=== PATIENT | female | born 1950 | race Caucasian/White ===

== ENCOUNTER 2017-06-25 08:24 | Emergency (ER) | END 2017-06-25 12:55 | disposition home or self-care (01) ==

== ENCOUNTER → 2018-08-14 | Outpatient (CLI) | payer OTHER ==
[~2018-08-14] MED LIST: ACET325 PO; ASPI325EC PO; ASPI81CH PO; BUPR150ER PO; BUSP5 PO; ERGO50000 PO; FLUSAL2505 INH; FURO40 PO; METF500C PO; METO25; Norco 5-325 Ta1 EACH PO; OXYACE5T PO; POTCHL20ER PO; PRAV20 PO; Zofran4 MG PO
[2018-08-14 12:06] LABS: BASOPHILS ABSOLUTE AUTO 0.08 K/mm3 (0.00-0.23); BASOPHILS PERCENT AUTO 1 % (0-2); EOSINOPHILS ABSOLUTE AUTO 0.41 K/mm3 (0.00-0.68); EOSINOPHILS PERCENT AUTO 5 % (0-6); Hematocrit 47.7 % (33.0-51.0); Hemoglobin 14.9 g/dL (11.5-16.0); IMMATURE GRAN ABSOLUTE AUTO 0.02 K/mm3 (0.00-0.10); IMMATURE GRAN PERCENT AUTO 0 % (0-1); LYMPHOCYTES ABSOLUTE AUTO 1.42 K/mm3 (0.84-5.20); LYMPHOCYTES PERCENT AUTO 16 % (21-46); MONOCYTES ABSOLUTE AUTO 0.53 K/mm3 (0.16-1.47); MONOCYTES PERCENT AUTO 6 % (4-13); Mean Corpuscular HGB 28.7 pg (26.0-34.0); Mean Corpuscular HGB Conc 31.2 g/dL (31.5-36.5); Mean Corpuscular Volume 92 fL (80-100); Mean Platelet Volume 10.9 fL (9.1-12.4); NEUTROPHILS ABSOLUTE AUTO 6.64 K/mm3 (1.96-9.15); NEUTROPHILS PERCENT AUTO 73 % (41-73); Platelet Count 253 K/mm3 (150-400); RDW Coefficient Variation 14.7 % (11.7-14.2); RDW Standard Deviation 50.1 fL (35.1-46.3); Red Blood Cell Count 5.19 M/mm3 (3.80-5.20)
[2018-08-14 12:20] LABS: Alanine Aminotransfer (ALT/SGP 17 U/L (12-78); Albumin, Blood 3.5 g/dL (3.4-5.0); Albumin/Globulin Ratio 0.8 (0.8-1.8); Alk Phos 133 U/L (50-136); Anion Gap 5 mmol/L (6-16); Aspartate Aminotrans (AST/SGOT 13 U/L (12-37); Bilirubin, Total 0.3 mg/dL (0.1-1.0); Blood Urea Nitrogen 25 mg/dL (8-24); Bun/Creatinine Ratio 23.6 (12.0-20.0); CHOL/HDL RATIO 3.5; CO2, Blood 28 mmol/L (21-32); Calcium, Blood 9.1 mg/dL (8.5-10.1); Chloride, Blood 107 mmol/L (98-108); Cholesterol 143 mg/dL (50-200); Creatinine, Blood 1.06 mg/dL (0.40-1.00); Globulin, Blood 4.3 g/dL (2.2-4.0); Glomerular Filtration Rate 55 (60-); Glucose, Blood 95 mg/dL (70-99); HDL Cholesterol 41 mg/dL (>39); LDL/HDL RATIO 2.1; Low Density Lipoprotein Chol 84 mg/dL (0-110); Potassium, Blood 4.1 mmol/L (3.5-5.5); Sodium, Blood 140 mmol/L (136-145); Total Protein, Blood 7.8 g/dL (6.4-8.2); Triglycerides 88 mg/dL (30-160); Very Low Density Lipoprot Chol 17 mg/dL (6-32)
[2018-08-14 12:40] LABS: Creatinine, Urine Random 10.8 mg/dL (27.00-270.00)
[2018-08-14 12:43] LABS: Microalb/Creat Ratio UR, Rand 164.815 mg/g (0.000-30.000); Microalbumin, Random Urine 17.8 mg/L (0.000-20.000)
== END ==
LOC: LAB 11:37 → LAB SHORT 11:37 → EDSTATUS 08-09 09:25 → LAB FUT 08-09 09:25
PROVIDERS: Family Medicine
DX: E11.9 Type 2 diabetes mellitus without complications (principal)
CPT/HCPCS: 80053; 80061; 82043; 82570; 83036; 85025

== ENCOUNTER 2018-10-09 08:12 | Day surgery (SDC) | payer OTHER ==
[~2018-10-09] VITALS: Ht 157.5 cm; Wt 116.9 kg
[~2018-10-09 08:12] MED LIST changes: +VITAMIN D5000 UNIT PO
--- NOTE | 2018-10-09 08:55 | NUR ---
Ambulatory in Day Surgery Patient states colon prep results clear. History, Chart, Medications and Allergies reviewed before start of procedure. Patient confirms NPO status and agrees with scheduled surgery. Patient States Post-Procedure ride home has been arranged.
--- NOTE | 2018-10-09 09:01 | NUR ---
10/09/18 0901 Carlyn Pruitt History, Chart, Medications and Allergies reviewed before start of procedure. MODERATE SEDATION DUE TO INCREASED BMI MONITOR INTACT WITH CONTINUOUS PULSE OXIMETRY AND INTERMITTENT BP. 3-LEAD EKG REVIEWED WITH PHYSICIAN PRIOR TO START OF PROCEDURE.O2 VIA N/C INTACT THROUGHOUT SEDATION/PROCEDURE.
--- NOTE | 2018-10-09 10:05 | NUR ---
Patient up to Ambulate independently. Gait steady. Discharge instructions reviewed with patient. Patient verbalizes understanding. Copy given to patient to take home. Patient States Post-Procedure ride home has been arranged. Discharged via wheelchair to private car for ride home.
== END 2018-10-09 22:54 | disposition home or self-care (01) ==
LOC: ORSCMMR 08:12 → ORD 09:00 → ORSCMMR 09:00
PROVIDERS: Internal Medicine Gastroenterology
PROC: 0DBL8ZX Excision of Transverse Colon, Via Natural or Artificial Opening Endoscopic, Diagnostic (ICD-10-PCS; principal; 2018-10-09 09:00)
PROC: 0DBK8ZX Excision of Ascending Colon, Via Natural or Artificial Opening Endoscopic, Diagnostic (ICD-10-PCS; principal; 2018-10-09 09:00)
PROC: 0DBM8ZX Excision of Descending Colon, Via Natural or Artificial Opening Endoscopic, Diagnostic (ICD-10-PCS; principal; 2018-10-09 09:00)
PROC: 0DBN8ZX Excision of Sigmoid Colon, Via Natural or Artificial Opening Endoscopic, Diagnostic (ICD-10-PCS; principal; 2018-10-09 09:00)
DX: Z12.11 Encounter for screening for malignant neoplasm of colon (principal); Z86.010 Personal history of colon polyps; D12.5 Benign neoplasm of sigmoid colon; D12.4 Benign neoplasm of descending colon; D12.2 Benign neoplasm of ascending colon; D12.3 Benign neoplasm of transverse colon; E11.9 Type 2 diabetes mellitus without complications; J44.9 Chronic obstructive pulmonary disease, unspecified; I25.10 Atherosclerotic heart disease of native coronary artery without angina pectoris; F17.210 Nicotine dependence, cigarettes, uncomplicated; Z79.899 Other long term (current) drug therapy; Z79.82 Long term (current) use of aspirin; E66.01 Morbid (severe) obesity due to excess calories; Z68.42 Body mass index [BMI] 45.0-49.9, adult
CPT/HCPCS: 82947; 88305; J2250; J3010; J7120

== ENCOUNTER → 2021-01-27 | Outpatient (CLI) | payer OTHER | LOC: LAB 12:11 → LAB SHORT 12:11 | DX: N95.0 Postmenopausal bleeding (principal); N85.01 Benign endometrial hyperplasia; D26.0 Other benign neoplasm of cervix uteri | CPT/HCPCS: 88305 ==

== ENCOUNTER 2021-07-30 10:39 | Emergency (ER) | payer OTHER ==
[~2021-07-30] VITALS: Ht 162.6 cm; Wt 110.7 kg
[2021-07-30] MEDS ORDERED: LISI5 PO (12:32)
[2021-07-30 13:44] LABS: Albumin, Blood 2.8 g/dL (3.4-5.0); Albumin/Globulin Ratio 0.8 (0.8-1.8); Bilirubin, Total 0.4 mg/dL (0.1-1.0); Bun/Creatinine Ratio 10.3 (12.0-20.0); Creatinine, Blood 1.46 mg/dL (0.40-1.00); Globulin, Blood 3.7 g/dL (2.2-4.0); Potassium, Blood 3.7 mmol/L (3.5-5.5); Total Protein, Blood 6.5 g/dL (6.4-8.2)
[2021-07-30 14:06] LABS: BASOPHILS ABSOLUTE AUTO 0.06 K/mm3 (0.00-0.23); BASOPHILS PERCENT AUTO 1 % (0-2); EOSINOPHILS ABSOLUTE AUTO 0.03 K/mm3 (0.00-0.68); EOSINOPHILS PERCENT AUTO 0 % (0-6); Hematocrit 38.9 % (33.0-51.0); Hemoglobin 12.8 g/dL (11.5-16.0); IMMATURE GRAN ABSOLUTE AUTO 0.04 K/mm3 (0.00-0.10); IMMATURE GRAN PERCENT AUTO 0 % (0-1); LYMPHOCYTES ABSOLUTE AUTO 0.92 K/mm3 (0.84-5.20); LYMPHOCYTES PERCENT AUTO 8 % (21-46); MONOCYTES ABSOLUTE AUTO 0.44 K/mm3 (0.16-1.47); MONOCYTES PERCENT AUTO 4 % (4-13); Mean Corpuscular HGB 29.8 pg (26.0-34.0); Mean Corpuscular HGB Conc 32.9 g/dL (31.5-36.5); Mean Corpuscular Volume 91 fL (80-100); NEUTROPHILS ABSOLUTE AUTO 9.42 K/mm3 (1.96-9.15); NEUTROPHILS PERCENT AUTO 86 % (41-73); RDW Coefficient Variation 14.6 % (11.7-14.2); RDW Standard Deviation 48.5 fL (35.1-46.3); White Blood Cell Count 10.91 K/mm3 (4.00-11.30)
[2021-07-30 14:15] LABS: Mean Platelet Volume 10.7 fL (9.1-12.4)
[2021-07-30 14:22] LABS: Platelet Count 197 K/mm3 (150-400)
[2021-07-30] MEDS ORDERED: HYDR1TAB94 PO (15:46)
[2021-07-30 15:49] LABS: Influenza A, PCR NEGATIVE (NEGATIVE); Influenza B, PCR NEGATIVE (NEGATIVE); Resp Syncytial Virus, PCR NEGATIVE (NEGATIVE); SARS-Cov-2 (COVID-19) PCR, MMC NEGATIVE (NEGATIVE)
== END 2021-07-30 16:23 | disposition home or self-care (01) ==
LOC: ER 10:39
PROVIDERS: Emergency Medicine; Student in an Organized Health Care Education/Training Program
DX: M25.562 Pain in left knee (principal); Z79.899 Other long term (current) drug therapy; Z79.82 Long term (current) use of aspirin; J44.9 Chronic obstructive pulmonary disease, unspecified; E11.22 Type 2 diabetes mellitus with diabetic chronic kidney disease; N18.30 Chronic kidney disease, stage 3 unspecified; I25.10 Atherosclerotic heart disease of native coronary artery without angina pectoris; I10 Essential (primary) hypertension; E78.5 Hyperlipidemia, unspecified; F17.210 Nicotine dependence, cigarettes, uncomplicated
CPT/HCPCS: 0241U; 36415; 73502; 73562-LT; 80053; 83690; 85025; 96374; 96375; 99283-25; J1170; J2405

== ENCOUNTER → 2021-08-03 | Outpatient (CLI) | payer OTHER ==
[~2021-08-03] MED LIST changes: +HYDR1TAB94 PO; +LISI5 PO
[2021-08-03 13:04] LABS: Creatinine, Urine Random 91.5 mg/dL (27.00-270.00); Protein, Urine Random 152.5 mg/dL (0.0-11.9); Protein/Creat Ratio, Ur Random 1.7
== END | disposition home or self-care (01) ==
LOC: LAB 09:23 → LAB SHORT 09:23
PROVIDERS: Internal Medicine Nephrology
DX: E11.22 Type 2 diabetes mellitus with diabetic chronic kidney disease (principal); I50.32 Chronic diastolic (congestive) heart failure; N18.4 Chronic kidney disease, stage 4 (severe); N18.6 End stage renal disease; N25.81 Secondary hyperparathyroidism of renal origin; R60.1 Generalized edema; R60.9 Edema, unspecified; R79.89 Other specified abnormal findings of blood chemistry; R80.9 Proteinuria, unspecified
CPT/HCPCS: 82570; 84156

== ENCOUNTER 2021-09-12 06:30 | Inpatient (IN) | payer OTHER ==
[~2021-09-12] VITALS: Ht 165.1 cm; Wt 98.0 kg
[2021-09-12 07:26] LABS: BASOPHILS ABSOLUTE AUTO 0.04 K/mm3 (0.00-0.23); BASOPHILS PERCENT AUTO 0 % (0-2); EOSINOPHILS ABSOLUTE AUTO 0.12 K/mm3 (0.00-0.68); EOSINOPHILS PERCENT AUTO 1 % (0-6); Hemoglobin 13.9 g/dL (11.5-16.0); IMMATURE GRAN ABSOLUTE AUTO 0.07 K/mm3 (0.00-0.10); IMMATURE GRAN PERCENT AUTO 1 % (0-1); LYMPHOCYTES ABSOLUTE AUTO 0.99 K/mm3 (0.84-5.20); LYMPHOCYTES PERCENT AUTO 9 % (21-46); MONOCYTES ABSOLUTE AUTO 0.71 K/mm3 (0.16-1.47); MONOCYTES PERCENT AUTO 6 % (4-13); Mean Corpuscular HGB 30.2 pg (26.0-34.0); Mean Corpuscular HGB Conc 33.1 g/dL (31.5-36.5); Mean Corpuscular Volume 91 fL (80-100); Mean Platelet Volume 10.9 fL (9.1-12.4); NEUTROPHILS ABSOLUTE AUTO 9.21 K/mm3 (1.96-9.15); NEUTROPHILS PERCENT AUTO 83 % (41-73); Platelet Count 196 K/mm3 (150-400); RDW Coefficient Variation 14.7 % (11.7-14.2); RDW Standard Deviation 49.2 fL (35.1-46.3); Red Blood Cell Count 4.61 M/mm3 (3.80-5.20); White Blood Cell Count 11.14 K/mm3 (4.00-11.30)
[2021-09-12 07:39] LABS: Albumin, Blood 2.5 g/dL (3.4-5.0); Albumin/Globulin Ratio 0.7 (0.8-1.8); Bilirubin, Total 0.6 mg/dL (0.1-1.0); Bun/Creatinine Ratio 14.2 (12.0-20.0); Calcium, Blood 8.6 mg/dL (8.5-10.1); Creatinine, Blood 1.34 mg/dL (0.40-1.00); Globulin, Blood 3.4 g/dL (2.2-4.0); Potassium, Blood 3.3 mmol/L (3.5-5.5); Total Protein, Blood 5.9 g/dL (6.4-8.2)
[2021-09-12 08:33] LABS: Influenza A, PCR NEGATIVE (NEGATIVE); Influenza B, PCR NEGATIVE (NEGATIVE); Resp Syncytial Virus, PCR NEGATIVE (NEGATIVE); SARS-Cov-2 (COVID-19) PCR, MMC NEGATIVE (NEGATIVE)
[2021-09-12 08:46] LABS: Source, Urine Straight Cath
[2021-09-12 08:55] LABS: Bilirubin, Urine Neg (Neg); Blood, Urine 2+ (Neg); Glucose Qualitative, Urine Neg (Neg); Ketones, Urine 1+ (Neg); Leukocyte Esterase, Urine Neg (Neg); Nitrite, Urine Neg (Neg); Protein, Urine 4+ (Neg); Urobilinogen, Urine NORM (Normal)
[2021-09-12 09:10] LABS: Appearance, Urine Hazy (Clear); Color, Urine Yellow (P-Yellow)
[2021-09-12 09:11] LABS: Bacteria Few /hpf; Red Blood Cells, Urine 0-2 /hpf (0-2); Squamous Epithelial Cells Few /hpf (Few); White Blood Cells, Urine 0-2 /hpf (0-5)
[2021-09-12 09:12] LABS: Amorphous Mod (0-Heavy)
[2021-09-12] MEDS ORDERED: ASPI81CH PO (09:37)
[2021-09-12] MEDS ORDERED: FURO20 PO (09:38)
[2021-09-12] MEDS ORDERED: LISI5 PO (09:39)
[2021-09-12] MEDS ORDERED: PRAVASTATIN SOD10 M1 PO (09:40)
[2021-09-12 11:23] LABS: Anti-Xa UFH, PHA Monitoring <0.10 IU/mL; International Normalized Ratio 0.97; Prothrombin Time Results 10.2 Sec (9.7-11.5)
[2021-09-12] MEDS ORDERED: ACET325 PO (11:56)
--- NOTE | 2021-09-12 15:10 | NUR ---
saúl and renetta spoke to dr serna, orders pending.
--- NOTE | 2021-09-12 16:55 | NUR ---
PT ARRIVED TO UNIT THIS SHIFT STAFF TRANSFERRED PT FROM [facility] TO BED. PT ABLE TO TURN SIDE TO SIDE. HAD DEBRIS ON BACK, BUTTOCKS; CLEANED OFF. PT REPORTS HAS BEEN HAVING DIFFICULTY/UNABLE TO COMPLETE ADLS DUE TO WEAKNESS. REPORTS LEFT KNEE PAINFUL. MEDICATED PER ORDERS FOR PAIN AND PLACED ICE PACK UNDER KNEE FOR COMFORT. PT REPORTS POOR APPETITE OF LATE. CEDS BUT REPORTS HAS BEEN DECREASING AMOUNT SMOKES. DIET CONTROLLED DM2. STATES CHECKS BLOOD SUGARS IN AM. HEPARIN INFUSING PER ORDERS. AFTERNOON VS HYPERTENSIVE; 207/108 W/PULSE OF 117. DISCUSSED WITH DR MENDEZ, ORDERS OBTAINED. MEDICATED PER ORDERS W/IV LOPRESSOR. RECHECK OF VS SHOWS BP IMPROVED SLIGHTLY. HR NOW IN 90S. 02 SATS IN 90S ON RA. DENIES ANY CP. STRAIGHT CATH'D IN ED, HAS NOT VOIDED SINCE ARRIVING TO FLOOR. ORIENTED TO ROOM AND USE OF CALL LIGHT. BED ALARM ON FOR SAFETY.
[2021-09-13 02:03] LABS: Hematocrit 36.2 % (33.0-51.0); Hemoglobin 11.9 g/dL (11.5-16.0); Mean Corpuscular HGB 30.1 pg (26.0-34.0); Mean Corpuscular HGB Conc 32.9 g/dL (31.5-36.5); Mean Corpuscular Volume 91 fL (80-100); Platelet Count 180 K/mm3 (150-400); RDW Coefficient Variation 14.9 % (11.7-14.2); RDW Standard Deviation 50.3 fL (35.1-46.3); Red Blood Cell Count 3.96 M/mm3 (3.80-5.20); White Blood Cell Count 10.97 K/mm3 (4.00-11.30)
[2021-09-13 02:20] LABS: Alanine Aminotransfer (ALT/SGP 14 U/L (12-78); Albumin, Blood 2.4 g/dL (3.4-5.0); Albumin/Globulin Ratio 0.8 (0.8-1.8); Alk Phos 84 U/L (50-136); Anion Gap 6 mmol/L (6-16); Aspartate Aminotrans (AST/SGOT 18 U/L (12-37); Bilirubin, Total 0.3 mg/dL (0.1-1.0); Blood Urea Nitrogen 26 mg/dL (8-24); CHOL/HDL RATIO 3.4; CO2, Blood 25 mmol/L (21-32); Calcium, Blood 8.8 mg/dL (8.5-10.1); Chloride, Blood 104 mmol/L (98-108); Cholesterol 137 mg/dL (50-200); Creatinine, Blood 1.53 mg/dL (0.40-1.00); Globulin, Blood 3.1 g/dL (2.2-4.0); Glomerular Filtration Rate 36 (60-); Glucose, Blood 100 mg/dL (70-99); HDL Cholesterol 40 mg/dL (>39); LDL/HDL RATIO 1.8; Low Density Lipoprotein Chol 74 mg/dL (0-110); Potassium, Blood 3.7 mmol/L (3.5-5.5); Sodium, Blood 135 mmol/L (136-145); Total Protein, Blood 5.5 g/dL (6.4-8.2); Triglycerides 116 mg/dL (30-160); Very Low Density Lipoprot Chol 23 mg/dL (6-32)
--- NOTE | 2021-09-13 07:55 | NUR ---
SHIFT SUMMARY: PATIENT IS REPORTING LEFT KNEE PAIN, "I NEED TO HAVE IT REPLACED BUT THEY WONT DO IT". PATIENT WAS INC. OF URINE AT START OF SHIFT, THEN NO VOID. PATIENT WAS ASSISTED TO BSC WITH A HEAVY ASSIST OF 2, STAND AND PIVOT TO BSC AND WAS ABLE TO VOID CLEAR YELLOW URINE. TYLENOL AND HEAT THERAPY WAS USED WITH GOOD EFFECT FOR L KNEE PAIN. EXTREMITY WAS ALSO ELEVATED. NPO SINCE MIDNIGHT FOR LABS AND PART 1 OF STRESS THIS AM. HEPARIN GTT HAS BEEN INFUSING AT 22.2. @ 0154 Anti Xa WAS 0.41. NO CHANGES TO HEPARIN GTT. NO CAHNGES TO RATE NEXT Anti Xa is 09/14/21 0200. OLD SKIN TEAR ON LEFT FLANAGAN IS CLEANSED AND BAINAID IS PLACED.
--- NOTE | 2021-09-13 19:47 | NUR ---
SHIFT SUMMARY PATIENT A&OX3, FORGETFUL. FAMILY STATED THAT SHE IS VERY CONFUSED FROM HER BASELINE AND THAT IT SEEMS TO HAVE BEGAN 3 MONTHS AGO. PLEASANT AND COOPERATIVE WITH CARE. PATIENT IS 2PA TO [facility]. ON RA SATING MID 90S. FIRST PART OF STRESS TEST AND ECHO PERFORMED THIS AM. PLAN FOR SECOND PART OF STRESS TEST TOMORROW. PATIENT COMPLAINED ABOUT LEFT KNEE STATING SHE NEEDS TO GET IT REPLACED. NO SIGNIFICANT EVENTS T/O SHIFT. REPORT GIVEN TO ONCOMING RN.
--- NOTE | 2021-09-14 03:51 | NUR ---
SHIFT SUMMARY: PATIENT HAS MUCH BETTER MOBILITY TODAY. ABLE TO STAND AND PIVOT TO THE BSC WITH MINIMAL ASSIST. REPORTED LEFT KNEE PAIN THAT TYLENOL WAS GIVEN FOR WITH GOOD EFFECT. PATIENT IS MORE CONFUSED TONIGHT, SETTING OFF BED ALARM. OCCASSIONAL USING CALL RODRIGUEZ. PATIENT HAS BEEN NPO SINCE MIDNIGHT FOR SECOND PART OF STRESS TEST IN AM. BED ALARM IS ON FOR SAFETY.
[2021-09-14 05:07] LABS: BASOPHILS ABSOLUTE AUTO 0.07 K/mm3 (0.00-0.23); BASOPHILS PERCENT AUTO 1 % (0-2); EOSINOPHILS ABSOLUTE AUTO 0.23 K/mm3 (0.00-0.68); EOSINOPHILS PERCENT AUTO 3 % (0-6); Hematocrit 36.3 % (33.0-51.0); Hemoglobin 11.9 g/dL (11.5-16.0); IMMATURE GRAN ABSOLUTE AUTO 0.04 K/mm3 (0.00-0.10); IMMATURE GRAN PERCENT AUTO 1 % (0-1); LYMPHOCYTES ABSOLUTE AUTO 1.78 K/mm3 (0.84-5.20); LYMPHOCYTES PERCENT AUTO 21 % (21-46); MONOCYTES ABSOLUTE AUTO 0.71 K/mm3 (0.16-1.47); MONOCYTES PERCENT AUTO 8 % (4-13); Mean Corpuscular HGB 30.4 pg (26.0-34.0); Mean Corpuscular HGB Conc 32.8 g/dL (31.5-36.5); Mean Corpuscular Volume 93 fL (80-100); Mean Platelet Volume 11.1 fL (9.1-12.4); NEUTROPHILS ABSOLUTE AUTO 5.75 K/mm3 (1.96-9.15); NEUTROPHILS PERCENT AUTO 67 % (41-73); Platelet Count 183 K/mm3 (150-400); RDW Standard Deviation 51.8 fL (35.1-46.3); Red Blood Cell Count 3.91 M/mm3 (3.80-5.20); White Blood Cell Count 8.58 K/mm3 (4.00-11.30)
[2021-09-14 06:06] LABS: Albumin, Blood 2.5 g/dL (3.4-5.0); Albumin/Globulin Ratio 0.8 (0.8-1.8); Bilirubin, Total 0.4 mg/dL (0.1-1.0); Bun/Creatinine Ratio 21.2 (12.0-20.0); Calcium, Blood 8.8 mg/dL (8.5-10.1); Creatinine, Blood 1.65 mg/dL (0.40-1.00); Globulin, Blood 3.1 g/dL (2.2-4.0); Potassium, Blood 4.4 mmol/L (3.5-5.5); Total Protein, Blood 5.6 g/dL (6.4-8.2)
--- NOTE | 2021-09-14 07:30 | NUR ---
ASSUMED CARE: PT RESTING QUIETLY IN BED. NO ACUTE NEEDS OR CONCERNS.
--- NOTE | 2021-09-14 07:37 | NUR ---
ASSUMED CARE: PT RESTING QUIETLY, DENIES CHEST PAIN, NSR ON TELE. NUC MED CALLED WITH INSTRUCTIONS FOR TODAYS PORTION OF TEST. INTERIOR DESIGN COORDINATOR AWARE AND AT BEDSIDE AT THIS TIME.
--- NOTE | 2021-09-14 10:00 | NUR ---
DR HENLEY CAME TO SEE PT AND STATED THAT SINCE STRESS TEST RESULTS WON'T BE AVAILABLE UNTIL THIS EVENING, PT NPO AFTER MIDNIGHT IN CASE CARDIAC CATH IS NEEDED. OK TO EAT AFTER STRESS TEST.
--- NOTE | 2021-09-14 17:45 | NUR ---
SHIFT SUMMARY: PT COMPLETED STRESS TEST TODAY. PHOTO MASK CLEANER TO REVIEW RESULT AND DETERMINE IF CATH PROCEDURE NEEDED. NPO AT MIDNIGHT PER DR HENLEY ORDERS. DAUGHTER AT BEDSIDE AND UPDATED ON THIS. NO ACUTE NEEDS OR CONCERNS.
--- NOTE | 2021-09-14 23:41 | NUR ---
PT REFUSING TO WEAR TELE AT THIS TIME. WILL NOTIFY
--- NOTE | 2021-09-15 05:49 | NUR ---
SHIFT SUMMARY A/OX3, FORGETFUL AT TIMES. 1 ASSIST WITH FWW. DENIES CHEST PAIN/PRESSURE. PT REFUSING TO WEAR TELE, SALES ASSISTANT HOSPITALIST NOTIFIED. VSS, NO ACUTE CHANGES AT THIS TIME. BED IN LOWEST POSITION WITH CALL LIGHT IN REACH. WILL CONTINUE TO MONITOR AND REPORT TO ONCOMING RN.
[2021-09-15 06:35] LABS: Bun/Creatinine Ratio 20.2 (12.0-20.0); Calcium, Blood 9.4 mg/dL (8.5-10.1); Creatinine, Blood 1.83 mg/dL (0.40-1.00); Potassium, Blood 4.3 mmol/L (3.5-5.5)
--- NOTE | 2021-09-15 11:49 | NUR ---
PT COOPERATIVE WITH CARE. A/O X2-3. TEARFUL. STATES SHE WANTS TO GO HOMEAND EVERYONE KEEPS YELLING AT HER FOR GETTING OUT OF BED. PT REMINED THAT BED ALARM IS FOR HER SAFETY SO SHE DOESNT FALL. CONFUSED AT TIMES. FORGETS LIMITATIONS. H/R REGULAR. NO TELE. NO MURMUR NOTED. ON ROOM AIR. LUNGS CLEAR BILATERALLY. BREATHING EASY AND UNLABORED. PT DOES NOT KNOW WHEN HER LAST BM WAS. 1-2+ ASSIST TO RESTROOM. C/O PAIN IN LT KNEE. MEDICATED PER EMAR. PER REPORT PT NPO. UPDATED BY DR. DUMONT TO HAVE HER ON A CARDIAC DIET STARTING TODAY AND NPO AT MIDNIGHT FOR PROCEDURE TOMORROW. BED IN LOW POSITION, CALL LIGHT IN REACH, CALLS APPROPRIALTY.
--- NOTE | 2021-09-15 18:34 | NUR ---
PT PLEASANT AND COOPERATIVE IN CARE. A/O X2-3. CONFUSED AT TIMES. FORGETS LIMITATIONS. NO TELE. H/R REGUALR. NO MURMUR NOTED. ON ROOM AIR. BREATHING IS EASY AND UNLABORED. PT AMBUALTED TO BATHROOM WITH FWW, GAITBELT AND SBA. BRUISING NOTED ON HANDS, RAC AND LEG. BED IN LOW POSITION, CALL LIGHT IN REACH, CALLS APPROPRIATLY.
--- NOTE | 2021-09-15 18:39 | NUR ---
AGREE WITH STUDENT NOTES AND DOCUMENTATIONS
[2021-09-16 07:46] LABS: Bun/Creatinine Ratio 19.5 (12.0-20.0); Calcium, Blood 9.1 mg/dL (8.5-10.1); Creatinine, Blood 1.74 mg/dL (0.40-1.00); Magnesium, Blood 2.1 mg/dL (1.6-2.4); Potassium, Blood 4.5 mmol/L (3.5-5.5)
--- NOTE | 2021-09-16 15:45 | NUR ---
PT TRANSFERED TO CHILD CARE PROVIDER. ALL PT BELONGINGS TRANSFERED TO PCU2. GAVE REPORT TO HECTOR IN PCU. PT A&O X3 THROUGHOUT SHIFT. PT AMBULATED TO VOID IN RESTROOM, SBA WITH WALKER X2. VSS. NO PAIN REPORTED DURING SHIFT. CALL LIGHT, SIDE RAILS IN REACH.
--- NOTE | 2021-09-16 17:02 | NUR ---
PT [facility] FROM [facility], WITH RT GROIN ACCESS. CLOSURE DEVICE IN PLACE, NO ACTIVE BLEEDING, NO HEMATOMA, NO DEFORMITY. PT A/O X2-3, PT WITH SKEWED PERCETION OF ADMISSION TIMELINE, PT WITH CLAIMS OF NEGLECT FROM MEDICAL FLOOR REPORTS THAT SHE BECAME AGITATED WITH STAFF SHE WAS NOT BEING CARED FOR OR UPDATED. BUT HER TIMELINE OF THESE DETAILS DOES NOT MATCH ADMISSION TIMELINE. PT'S MENTATION SEEMS TO WAX AND WANE. PT ORIENTED TO ROOM UPON ARRIVAL. PT WILL REMAIN FLAT UNTIL 1999 TONIGHT, SHE IS EDUCATED ABOUT THIS, BUT MAY REQUIRE FURHTER OBSERVATION SHE SEEMS COMPULSIVE AND STS THAT HAS THREATENED TO LEAVE PRIOR TO PROCEDURE. VSS.
--- NOTE | 2021-09-16 17:18 | NUR ---
THIS LIQUOR TESTER HAS REVIEWED ALL NOTES AND ASSESSMENTS BY STEPHEN OVIEDO AND AGREES WITH THEM.
[2021-09-17 03:47] LABS: Hematocrit 36.4 % (33.0-51.0); Hemoglobin 11.6 g/dL (11.5-16.0); Mean Corpuscular HGB 30.1 pg (26.0-34.0); Mean Corpuscular HGB Conc 31.9 g/dL (31.5-36.5); Mean Corpuscular Volume 95 fL (80-100); Platelet Count 226 K/mm3 (150-400); RDW Coefficient Variation 15.5 % (11.7-14.2); Red Blood Cell Count 3.85 M/mm3 (3.80-5.20); White Blood Cell Count 9.95 K/mm3 (4.00-11.30)
[2021-09-17 04:05] LABS: Bun/Creatinine Ratio 21.7 (12.0-20.0); Calcium, Blood 9.1 mg/dL (8.5-10.1); Creatinine, Blood 1.89 mg/dL (0.40-1.00); Magnesium, Blood 2.1 mg/dL (1.6-2.4); Potassium, Blood 4.4 mmol/L (3.5-5.5)
--- NOTE | 2021-09-17 08:13 | NUR ---
NO ACUTE EVENTS OVERNIGHT WITH THE EXCEPTION OF THE NEED FOR 2 LPM SUPPLEMENTAL OXYGEN DUE TO PATIENT'S SpO2 DROPPING WHILE SLEEPING. PT DENIES ANY DIAGNOSIS OF SLEEP APNEA, BUT WAS OBSERVED BY THIS RN TO HAVE PERIODS OF APNEA WHILE SLEEPING. NO SNORING OBSERVED. RIGHT FEMORAL CATHETERIZATION SITE CLEAN/DRY/INTACT. PT WAS ABLE TO AMBULATE TO THE BATHROOW WITH ASSISTANCE OF 1 AND WALKER. SHE NEEDS ASSISTANCE WITH RISING UP OFF THE BED AND TOILET. OBSERVE PT TO HAVE SLIGHT DYSPNEA WITH AMBULATION. SHE STATES THIS IS HER NORMAL WHILE AT THE SAME TIME SAYING THAT SHE IS NEVER SHORT OF BREATH. PT DOES ENDORSE HAVING TO TAKE FREQUENT REST PERIODS WITH ANY ACTIVITY AND IS MOSTLY SEDENTARY AT HOME. EDUCATION PROVIDED TO PATIENT REGARDING CORONARY ARTERY DISEASE, HEART FAILURE (EXPLANATION AND BOOKLET PROVIDED), AND RESTRICTIONS FOR NEXT 72 HOURS RELATED TO GROIN SITE.
--- NOTE | 2021-09-17 10:33 | NUR ---
ATTEMPTED TO CALL DAUGHTER RAFAEL AT [phone], THE PERSON WHO ANSWERED STS THIS IS THE WRONG NUMBER
[2021-09-17] MEDS ORDERED: PRAV20 PO (14:24)
[2021-09-17] MEDS ORDERED: FURO20 PO (14:24)
[2021-09-17] MEDS ORDERED: AMLO10 PO (14:25)
[2021-09-17] MEDS ORDERED: CATAPRES0.1 MG PO (14:25)
[2021-09-17] MEDS ORDERED: Imdur30 MG PO (14:26)
[2021-09-17] MEDS ORDERED: HYDR100 PO (14:26)
[2021-09-17] MEDS ORDERED: FAMO10 (14:26)
[2021-09-17] MEDS ORDERED: METO50ER PO (14:27)
--- NOTE | 2021-09-17 15:26 | NUR ---
DISHCARGE SUMMARY PT A/O X 3 AND IS COOPERATIVE WITH STAFF. PT/FAMILY PROVIDED THOROUGH EDUCATION REGARDING HER MEDICATIONS, POST ANGIO SITE CARE, AND BLOOD PRESSURE MANAGMENT. PT ADVISED TO KEEP BLOOD PRESSURE LOG OF MORNING AND EVENING PRESSURES FOR SEVERAL WEEKS. PT INSTRUCTED TO FOLLOW UP WITH PCP WITHIN 2-3 WEEKS AND SCHEDULE APPOINTMENT WITH [facility] FOR POST ANGIO FOLLOW UP. RIGHT FEMORAL ANGIO INSERTION SITE NON TENDER WITH NO SIGNS OF BLEEDING OR HEMATOMA. PT AND FAMILY STATED UNDERSTANDING OF EDUCATION PROVIDED AND HAD NO FURTHER QUESTIONS. PT REPORTED NO SOB, CP/PRESSURE, OR DIZZNESS UPON DISCHARGE. NADN, VSS UPON DISHARGE
== END 2021-09-17 15:09 | disposition home or self-care (01) | DRG 286 ==
LOC: ER 06:30 → MEDS 06:31 → ER 09:29 → MEDS 09:29 → PCU 09-16 15:10
PROVIDERS: Emergency Medicine; Internal Medicine; Internal Medicine Cardiovascular Disease; ADMIT Internal Medicine
PROC: 3E03329 Introduction of Other Anti-infective into Peripheral Vein, Percutaneous Approach (ICD-10-PCS; 2021-09-12)
PROC: B2181ZZ Fluoroscopy of Left Internal Mammary Bypass Graft using Low Osmolar Contrast (ICD-10-PCS; principal; 2021-09-16)
PROC: B2111ZZ Fluoroscopy of Multiple Coronary Arteries using Low Osmolar Contrast (ICD-10-PCS; 2021-09-16)
DX: I13.0 Hypertensive heart and chronic kidney disease with heart failure and stage 1 through stage 4 chronic kidney disease, or unspecified chronic kidney disease (principal); I50.21 Acute systolic (congestive) heart failure; I24.9 Acute ischemic heart disease, unspecified; E11.22 Type 2 diabetes mellitus with diabetic chronic kidney disease; N18.30 Chronic kidney disease, stage 3 unspecified; N28.9 Disorder of kidney and ureter, unspecified; J44.9 Chronic obstructive pulmonary disease, unspecified; R77.8 Other specified abnormalities of plasma proteins; E78.5 Hyperlipidemia, unspecified; F17.210 Nicotine dependence, cigarettes, uncomplicated; E66.9 Obesity, unspecified; Z20.822 Contact with and (suspected) exposure to COVID-19; J98.01 Acute bronchospasm; R09.02 Hypoxemia; Z95.5 Presence of coronary angioplasty implant and graft; Z95.1 Presence of aortocoronary bypass graft; Z90.49 Acquired absence of other specified parts of digestive tract; Z86.79 Personal history of other diseases of the circulatory system; Z79.82 Long term (current) use of aspirin; Z79.01 Long term (current) use of anticoagulants; Z79.1 Long term (current) use of non-steroidal anti-inflammatories (NSAID); Z79.899 Other long term (current) drug therapy; I25.10 Atherosclerotic heart disease of native coronary artery without angina pectoris; I42.9 Cardiomyopathy, unspecified; Z68.36 Body mass index [BMI] 36.0-36.9, adult
CPT/HCPCS: 0241U; 36415; 71045; 78452; 80048; 80053; 80061; 81001; 82947; 83036; 83605; 83735; 83880; 84484; 85025; 85027; 85520; 85610; 85730; 87040; 93005; 93010; 93017; 93308; 93321; 93455; 94640; 94664; 94760; 94762; 96361; 96374; 97110; 97116; 97162; 97166; 97530; 97535; 99152; 99153; 99285-25; A9270; A9500; C1760; C1769; C1894; J0696; J0706; J1644; J2250; J2785; J3010; J7030; J7040; Q9967

== ENCOUNTER → 2021-10-13 | Outpatient (CLI) | payer OTHER ==
[~2021-10-13] MED LIST changes: +AMLO10 PO; +CATAPRES0.1 MG PO; +FAMO10; +FURO20 PO; +HYDR100 PO; +Imdur30 MG PO; +METO50ER PO; +PRAVASTATIN SOD10 M1 PO
[2021-10-13 19:12] LABS: Bun/Creatinine Ratio 21.4 (12.0-20.0); Calcium, Blood 9.6 mg/dL (8.5-10.1); Creatinine, Blood 1.68 mg/dL (0.40-1.00); Potassium, Blood 3.9 mmol/L (3.5-5.5)
== END | disposition home or self-care (01) ==
LOC: LAB SHORT 18:28 → LAB 18:28
PROVIDERS: Family Medicine
DX: N18.30 Chronic kidney disease, stage 3 unspecified (principal)
CPT/HCPCS: 80048

== ENCOUNTER → 2022-08-12 | Outpatient (CLI) | payer OTHER ==
[2022-08-12 19:04] LABS: BASOPHILS ABSOLUTE AUTO 0.06 K/mm3 (0.00-0.23); BASOPHILS PERCENT AUTO 1 % (0-2); EOSINOPHILS ABSOLUTE AUTO 0.35 K/mm3 (0.00-0.68); EOSINOPHILS PERCENT AUTO 4 % (0-6); Hematocrit 31.1 % (33.0-51.0); Hemoglobin 9.8 g/dL (11.5-16.0); IMMATURE GRAN ABSOLUTE AUTO 0.04 K/mm3 (0.00-0.10); IMMATURE GRAN PERCENT AUTO 0 % (0-1); LYMPHOCYTES ABSOLUTE AUTO 0.87 K/mm3 (0.84-5.20); LYMPHOCYTES PERCENT AUTO 9 % (21-46); MONOCYTES ABSOLUTE AUTO 0.55 K/mm3 (0.16-1.47); MONOCYTES PERCENT AUTO 6 % (4-13); Mean Corpuscular HGB 29.5 pg (26.0-34.0); Mean Corpuscular HGB Conc 31.5 g/dL (31.5-36.5); Mean Corpuscular Volume 94 fL (80-100); Mean Platelet Volume 10.7 fL (9.1-12.4); NEUTROPHILS PERCENT AUTO 80 % (41-73); Platelet Count 257 K/mm3 (150-400); RDW Coefficient Variation 16.6 % (11.7-14.2); RDW Standard Deviation 57.1 fL (35.1-46.3); Red Blood Cell Count 3.32 M/mm3 (3.80-5.20); White Blood Cell Count 9.37 K/mm3 (4.00-11.30)
[2022-08-12 20:04] LABS: Albumin, Blood 3.1 g/dL (3.4-5.0); Anion Gap 4 mmol/L (6-16); Blood Urea Nitrogen 71 mg/dL (8-24); Bun/Creatinine Ratio 21.7 (12.0-20.0); CO2, Blood 26 mmol/L (21-32); Calcium, Blood 9.3 mg/dL (8.5-10.1); Chloride, Blood 109 mmol/L (98-108); Creatinine, Blood 3.27 mg/dL (0.40-1.00); Glomerular Filtration Rate 14 (60-); Glucose, Blood 136 mg/dL (70-99); Phosphorus, Blood 4.1 mg/dL (2.5-4.9); Potassium, Blood 4.2 mmol/L (3.5-5.5); Sodium, Blood 139 mmol/L (136-145)
[2022-08-12 20:10] LABS: Alanine Aminotransfer (ALT/SGP 20 U/L (12-78); Albumin, Blood 3.1 g/dL (3.4-5.0); Albumin/Globulin Ratio 0.9 (0.8-1.8); Alk Phos 110 U/L (50-136); Anion Gap 5 mmol/L (6-16); Aspartate Aminotrans (AST/SGOT 21 U/L (12-37); Bilirubin, Total 0.4 mg/dL (0.1-1.0); Blood Urea Nitrogen 71 mg/dL (8-24); CHOL/HDL RATIO 2.9; CO2, Blood 26 mmol/L (21-32); Calcium, Blood 9.3 mg/dL (8.5-10.1); Chloride, Blood 109 mmol/L (98-108); Cholesterol 96 mg/dL (50-200); Creatinine, Blood 3.22 mg/dL (0.40-1.00); Globulin, Blood 3.6 g/dL (2.2-4.0); Glomerular Filtration Rate 15 (60-); Glucose, Blood 134 mg/dL (70-99); HDL Cholesterol 33 mg/dL (>39); LDL/HDL RATIO 1.3; Low Density Lipoprotein Chol 43 mg/dL (0-110); Potassium, Blood 4.1 mmol/L (3.5-5.5); Sodium, Blood 140 mmol/L (136-145); Total Protein, Blood 6.7 g/dL (6.4-8.2); Triglycerides 99 mg/dL (30-160); Very Low Density Lipoprot Chol 19 mg/dL (6-32)
== END | disposition home or self-care (01) ==
LOC: LAB SHORT 12:00 → LAB 12:00
PROVIDERS: Family Medicine; Internal Medicine Nephrology
DX: N18.4 Chronic kidney disease, stage 4 (severe) (principal); Z79.899 Other long term (current) drug therapy
CPT/HCPCS: 80053; 80061; 80069; 82306; 83036; 84443; 85025